=== PATIENT | female | born 1995 | race African-American/Black ===

== ENCOUNTER 2016-09-19 20:30 | Emergency (ER) | payer BC, MEDICAID ==
[~2016-09-19] VITALS: Ht 152.4 cm; Wt 60.0 kg
[~2016-09-19 20:30] MED LIST: DEPO400I IM; IBUP800T23 PO
[2016-09-19 20:34] VITALS: BP 116/88; PULSE 100; RESP 16; TEMP 97.1; O2SAT 100
[2016-09-19] MEDS ORDERED: SODIUM CHLOR 0.9% 1000 ML INJ 1,000 ML IV SCH (20:39)
[2016-09-19] MEDS ORDERED: DEPO150I IM (20:44)
[2016-09-19] MEDS ORDERED: IBUP800T23 PO (20:44)
[2016-09-19] MEDS ORDERED: SODIUM CHLORIDE 0.9% FLUSH 5 ML FLUSH IVF PRN (20:45)
[2016-09-19] MEDS ORDERED: ONDANSETRON HCL 4 MG/2 ML VIAL IVP ONE (20:45)
--- NOTE | 2016-09-19 20:48 | PD ---
HPI Chief Complaint: GI Complaint Time Seen by Provider: 20:38 Travel History International Travel<30 days: No Contact w/Intl Traveler<30days: No Traveled to known affect area: No History of Present Illness HPI This patient was examined in the presence of a female nurse. 21-year-old female presents for evaluation of nausea, vomiting. Symptom onset this morning. She reports approximately 8 episodes of nonbilious non-bloody emesis today. She is currently nauseous. She is denying any abdominal pain, dysuria, vaginal bleeding or discharge, flank pain, fevers or chills. She reports that yesterday evening she drank several alcoholic beverages at a [employer]. She denies any illicit drug use. She does not believe that she is because she received a Depo-Provera injection. She has no other complaints. [facility] Social History Alcohol Use: Yes Tobacco Use: Yes Allergies-Medications (Allergen,Severity, Reaction): Coded Allergies: No Known Allergies (Unverified , 09/19/16) Reported Meds & Prescriptions Reported Meds & Active Scripts Active Zofran (Ondansetron HCl) 4 Mg Tab 4 Mg PO Q6HR PRN Reported Depo-Provera Inj (Medroxyprogesterone Inj) 150 Mg/Ml Inj 150 Mg IM ONCE Ibuprofen 800 Mg Tab 800 Mg PO TID Review of Systems Except as stated in HPI: all other systems reviewed are Neg Physical Exam Narrative GENERAL: Well-developed well-nourished female in no acute distress resting comfortably in hospital bed SKIN: Warm and dry. HEAD: Atraumatic. Normocephalic. EYES: Pupils equal and round. No scleral icterus. No injection or drainage. ENT: No nasal bleeding or discharge. Mucous membranes pink and moist. NECK: Trachea midline. No JVD. CARDIOVASCULAR: Regular rate and rhythm. No murmur appreciated. RESPIRATORY: No accessory muscle use. Clear to auscultation. Breath sounds equal bilaterally. GASTROINTESTINAL: Abdomen soft, non-tender, nondistended. Hepatic and splenic margins not palpable. No guarding. No CVA tenderness. MUSCULOSKELETAL: No obvious deformities. No edema. NEUROLOGICAL: Awake and alert. No obvious cranial nerve deficits. Motor grossly within normal limits. Normal speech. Data Data Last Documented VS Vital Signs Date Time Temp Pulse Resp B/P Pulse Ox O2 Delivery O2 Flow Rate FiO2 09/19/16 21:21 18 09/19/16 20:34 97.1 100 116/88 100 Room Air Orders Complete Blood Count With Diff (09/19/16 20:39) Comprehensive Metabolic Panel (09/19/16 20:39) Lipase (09/19/16 20:39) Urinalysis - C+S If Indicated (09/19/16 20:39) Ed Urine Pregnancytest Poc (09/19/16 20:39) Iv Access Insert/Monitor (09/19/16 20:39) Ecg Monitoring (09/19/16 20:39) Oximetry (09/19/16 20:39) Ondansetron Inj (Zofran Inj) (09/19/16 20:45) Sodium Chlor 0.9% 1000 Ml Inj (Ns 1000 M (09/19/16 20:39) Sodium Chloride 0.9% Flush (Ns Flush) (09/19/16 20:45) Labs Laboratory Tests Test 09/19/16 20:50 White Blood Count 6.4 TH/MM3 Red Blood Count 4.95 MIL/MM3 Hemoglobin 14.3 GM/DL Hematocrit 42.8 % Mean Corpuscular Volume 86.5 FL Mean Corpuscular Hemoglobin 28.9 PG Mean Corpuscular Hemoglobin 33.4 % Concent Red Cell Distribution Width 13.7 % Platelet Count 191 TH/MM3 Mean Platelet Volume 8.7 FL Neutrophils (%) (Auto) 66.4 % Lymphocytes (%) (Auto) 23.3 % Monocytes (%) (Auto) 9.9 % Eosinophils (%) (Auto) 0.2 % Basophils (%) (Auto) 0.2 % Neutrophils # (Auto) 4.2 TH/MM3 Lymphocytes # (Auto) 1.5 TH/MM3 Monocytes # (Auto) 0.6 TH/MM3 Eosinophils # (Auto) 0.0 TH/MM3 Basophils # (Auto) 0.0 TH/MM3 CBC Comment DIFF FINAL Differential Comment Urine Color YELLOW Urine Turbidity HAZY Urine pH 8.0 Urine Specific [place] 1.027 Urine Protein 100 mg/dL Urine Glucose (UA) NEG mg/dL Urine Ketones NEG mg/dL Urine Occult Blood NEG Urine Nitrite NEG Urine Bilirubin NEG Urine Urobilinogen LESS THAN 2.0 MG/DL Urine Leukocyte Esterase NEG Urine RBC 1 /hpf Urine WBC 1 /hpf Urine Squamous Epithelial 16 /hpf Cells Urine Bacteria RARE /hpf Urine Mucus MOD /lpf Microscopic Urinalysis Comment CULT NOT INDICATED Sodium Level 139 MEQ/L Potassium Level 4.1 MEQ/L Chloride Level 104 MEQ/L Carbon Dioxide Level 26.8 MEQ/L Anion Gap 8 MEQ/L Blood Urea Nitrogen 11 MG/DL Creatinine 0.83 MG/DL Estimat Glomerular Filtration 104 ML/MIN Rate Random Glucose 92 MG/DL Calcium Level 9.1 MG/DL Total Bilirubin 0.6 MG/DL Aspartate Amino Transf 24 U/L (AST/SGOT) Alanine Aminotransferase 25 U/L (ALT/SGPT) Alkaline Phosphatase 100 U/L Total Protein 8.6 GM/DL Albumin 3.9 GM/DL Lipase 119 U/L [facility] Medical Decision Making Medical Screen Exam Complete: Yes Emergency Medical Condition: Yes Medical Record Reviewed: Yes Interpretation(s) Urine test negative CBC unremarkable CMP unremarkable Urinalysis rare bacteria, 100 protein Differential Diagnosis Dehydration, electrolyte abnormality, alcohol poisoning, early , pancreatitis, hyperglycemia, biliary colic Narrative Course 21-year-old female who drinks several alcoholic drinks yesterday evening presents with nausea and vomiting throughout the day today. Her abdomen is soft and nontender. I Suspect that her symptoms are secondary to drinking copious amounts of alcohol last night. The patient will be provided IV Zofran and fluids. Basic lab work will be obtained. Urinalysis, urine test and ordered. The patient's lab work is reassuring. Upon reexamination she feels significantly improved. The plan is to discharge the patient with a short course of Zofran. She is stable for discharge. Diagnosis Primary Impression: Nausea and vomiting Qualified Code: R11.2 - Non-intractable vomiting with nausea, unspecified vomiting type Additional Instructions: Zofran for nausea. Stay well-hydrated and well-nourished. Slowly advance diet. Follow-up with primary care physician as needed and return for new or worsening symptoms. Med/Other Pt SpecificInfo: Prescription(s) given Scripts Ondansetron (Zofran)4 Mg Tab4 Mg PO Q6HR PRN (NAUSEA OR VOMITING) #20 TAB Ref 0 Prov:Steffany Castañeda MD 09/19/16 Disposition: 01 DISCHARGE HOME Condition: Stable Piotr Lange Sep 19, 2016 20:48
[2016-09-19 21:21] VITALS: RESP 18
[2016-09-19 21:24] LABS: AUTOMATED NEUTROPHIL # 4.2 TH/MM3 (1.8-7.7); BASOPHIL % 0.2 % (0.0-2.0); EOSINOPHIL % 0.2 % (0.0-4.0); HEMATOCRIT 42.8 % (35.0-46.0); HEMO FLAGS DIFF FINAL; LYMPH % 23.3 % (9.0-44.0); LYMPHOCYTE # 1.5 TH/MM3 (1.0-4.8); MEAN CELL VOLUME 86.5 FL (80.0-100.0); MEAN CORPUSCULAR HEMOGLOBIN 28.9 PG (27.0-34.0); MEAN CORPUSCULAR HGB CONC 33.4 % (32.0-36.0); MONO % 9.9 % (0.0-8.0); NEUT % 66.4 % (16.0-70.0); PLATELET COUNT 191 TH/MM3 (150-450); RED BLOOD COUNT 4.95 MIL/MM3 (4.00-5.30); RED CELL DISTRIBUTION WIDTH 13.7 % (11.6-17.2); WHITE BLOOD COUNT 6.4 TH/MM3 (4.0-11.0)
[2016-09-19 21:39] LABS: ANION GAP 8 MEQ/L (5-15); AST (GOT) 24 U/L (15-37); BACTERIA, URINE RARE /hpf; BICARBONATE 26.8 MEQ/L (21.0-32.0); BLOOD UREA NITROGEN 11 MG/DL (7-18); BLOOD, URINE NEG (NEG); CHLORIDE 104 MEQ/L (98-107); COMMENT (UR) CULT NOT INDICATED; CULTURE IF INDICATED CULT NOT INDICATED; GLOMERULAR FILTRATION RATE 104 ML/MIN (>89); GLUCOSE,URINE NEG (NEG); KETONE, URINE NEG (NEG); MUCUS URINE MOD /lpf (OCC); NITRITE,URINE NEG (NEG); POTASSIUM 4.1 MEQ/L (3.5-5.1); SODIUM (NA) 139 MEQ/L (136-145); SQUAMOUS EPITHELIAL CELL URINE 16 /hpf (0-5); URINE COLOR YELLOW (YELLW/STRAW)
[2016-09-19 21:41] LABS: ALKALINE PHOSPHATASE 100 U/L (45-117); ALT (GPT) 25 U/L (10-53); TOTAL BILIRUBIN ADULT 0.6 MG/DL (0.2-1.0)
[2016-09-19] MEDS ORDERED: ZOFR4TAB PO (21:57)
== END 2016-09-19 22:58 | disposition home or self-care (01) ==
LOC: NEPE 20:30
DX: R11.2 Nausea with vomiting, unspecified (principal)
CPT/HCPCS: 80053; 81001; 83690; 84703; 85025; 96361; 96374; 99284; J2405; J7030

== ENCOUNTER 2017-06-24 15:31 | Emergency (ER) | payer SELFPAY ==
[~2017-06-24] VITALS: Ht 154.9 cm; Wt 65.0 kg
[~2017-06-24 15:31] MED LIST changes: +DEPO150I IM; -DEPO400I IM; +ZOFR4TAB PO
[2017-06-24 15:33] VITALS: BP 120/74; PULSE 91; RESP 16; TEMP 98.5; O2SAT 95
[2017-06-24] MEDS ORDERED: SODIUM CHLOR 0.9% 1000 ML INJ 1,000 ML IV SCH (17:00)
[2017-06-24] MEDS ORDERED: ONDANSETRON HCL 4 MG/2 ML VIAL IVP ONE (17:00)
[2017-06-24] MEDS ORDERED: SODIUM CHLORIDE 0.9% FLUSH 10 ML FLUSH IV FLUSH PRN (17:00)
--- NOTE | 2017-06-24 17:00 | PD ---
HPI Chief Complaint: GI Complaint Time Seen by Provider: 16:56 Travel History International Travel<30 days: No Contact w/Intl Traveler<30days: No Traveled to known affect area: No History of Present Illness HPI 21-year-old female presents to emergency Department with complaint of nausea and vomiting since last night about 10 PM. States that she vomited a total of 6 times prior to the ER in 3 times while waiting in the waiting room. Denies fever, abdominal pain, dysuria, vaginal discharge, diarrhea. Has an IUD and had some spotting a few days ago, which she considers her LMP. No one else with similar symptoms. Has not taken any medications or tried any treatments to alleviate her symptoms. No known aggravating or relieving factors. Says she did try to drink some fluids and threw it up also. Symptoms are mild in severity. Has no other medical complaints. No known allergies. No other modifying factors or associated signs and symptoms. PFSH Past Medical History ?: Not LMP: 06/2017 : 0 Social History Alcohol Use: Yes Tobacco Use: Yes Substance Use: Yes () Allergies-Medications (Allergen,Severity, Reaction): Coded Allergies: No Known Allergies (Unverified , 09/19/16) Reported Meds & Prescriptions Reported Meds & Active Scripts Active Zofran Odt (Ondansetron Odt) 4 Mg Tab 4 Mg SL Q6HR PRN Reported Depo-Provera Inj (Medroxyprogesterone Inj) 150 Mg/Ml Inj 150 Mg IM ONCE Review of Systems Except as stated in HPI: all other systems reviewed are Neg Physical Exam Narrative GENERAL: Well-nourished, well-developed black female patient, in no acute distress; afebrile, nontoxic-appearing SKIN: Warm and dry. HEAD: Atraumatic. Normocephalic. EYES: Pupils equal and round. No scleral icterus. No injection or drainage. ENT: Mucosa pink and moist. Airway patent. NECK: Trachea midline. CARDIOVASCULAR: Regular rate and rhythm. No murmur appreciated. RESPIRATORY: No accessory muscle use. Clear to auscultation. Breath sounds equal bilaterally. GASTROINTESTINAL: Abdomen soft, non-tender, nondistended. Hepatic and splenic margins not palpable. Bowel sounds are active 4 quadrants. Bladder nontender and nondistended. MUSCULOSKELETAL: No obvious deformities. No clubbing. No cyanosis. No edema. NEUROLOGICAL: Awake and alert. Oriented 3. No obvious cranial nerve deficits. Motor grossly within normal limits. Normal speech. PSYCHIATRIC: Appropriate mood and affect; insight and judgment normal. Data Data Last Documented VS Vital Signs Date Time Temp Pulse Resp B/P (MAP) Pulse Ox O2 Delivery O2 Flow Rate FiO2 06/24/17 20:07 06/24/17 15:33 98.5 91 16 95 Orders Orders Iv Access Insert/Monitor (06/24/17 17:00) Ondansetron Inj (Zofran Inj) (06/24/17 17:00) Sodium Chlor 0.9% 1000 Ml Inj (Ns 1000 M (06/24/17 17:00) Sodium Chloride 0.9% Flush (Ns Flush) (06/24/17 17:00) Ed Urine Pregnancytest Poc (06/24/17 17:00) Complete Blood Count With Diff (06/24/17 17:00) Urinalysis - C+S If Indicated (06/24/17:17) Comprehensive Metabolic Panel (06/24/17 17:20) Lipase (06/24/17 17:20) Ondansetron Inj (Zofran Inj) (06/24/17 19:00) Labs Laboratory Tests Test 06/24/17 17:35 White Blood Count 7.7 TH/MM3 Red Blood Count 4.82 MIL/MM3 Hemoglobin 14.2 GM/DL Hematocrit 42.8 % Mean Corpuscular Volume 88.8 FL Mean Corpuscular Hemoglobin 29.5 PG Mean Corpuscular Hemoglobin Concent 33.3 % Red Cell Distribution Width 13.6 % Platelet Count 229 TH/MM3 Mean Platelet Volume 8.2 FL Neutrophils (%) (Auto) 72.5 % Lymphocytes (%) (Auto) 18.7 % Monocytes (%) (Auto) 8.4 % Eosinophils (%) (Auto) 0.1 % Basophils (%) (Auto) 0.3 % Neutrophils # (Auto) 5.6 TH/MM3 Lymphocytes # (Auto) 1.4 TH/MM3 Monocytes # (Auto) 0.6 TH/MM3 Eosinophils # (Auto) 0.0 TH/MM3 Basophils # (Auto) 0.0 TH/MM3 CBC Comment DIFF FINAL Differential Comment Urine Color YELLOW Urine Turbidity HAZY Urine pH 7.0 Urine Specific [place] 1.029 Urine Protein 100 mg/dL Urine Glucose (UA) NEG mg/dL Urine Ketones NEG mg/dL Urine Occult Blood NEG Urine Nitrite NEG Urine Bilirubin NEG Urine Urobilinogen LESS THAN 2.0 MG/DL Urine Leukocyte Esterase NEG Urine WBC 4 /hpf Urine Squamous Epithelial Cells 14 /hpf Urine Mucus MOD /lpf Microscopic Urinalysis Comment CULT NOT INDICATED Blood Urea Nitrogen 10 MG/DL Creatinine 0.76 MG/DL Random Glucose 85 MG/DL Total Protein 9.1 GM/DL Albumin 4.0 GM/DL Calcium Level 9.6 MG/DL Alkaline Phosphatase 121 U/L Aspartate Amino Transf (AST/SGOT) 28 U/L Alanine Aminotransferase (ALT/SGPT) 23 U/L Total Bilirubin 0.5 MG/DL Sodium Level 139 MEQ/L Potassium Level 4.6 MEQ/L Chloride Level 106 MEQ/L Carbon Dioxide Level 23.2 MEQ/L Anion Gap 10 MEQ/L Estimat Glomerular Filtration Rate 115 ML/MIN Lipase 97 U/L MDM Medical Decision Making Medical Screen Exam Complete: Yes Emergency Medical Condition: Yes Medical Record Reviewed: Yes Differential Diagnosis Nausea and vomiting, gastroenteritis, dehydration, , pancreatitis Narrative Course 21-year-old female with nausea and vomiting since 10 PM last night. IV site obtained. CBC, CMP, lipase, urinalysis, UPT, normal saline bolus, Zofran ordered. 1817: CBC unremarkable. Urinalysis without signs of infection. 1850: Patient has been drinking fluids tolerated well. Patient says she feels a little nauseated at this time, but not bad. Second dose of Zofran ordered. CMP unremarkable. Patient discharged home with Zofran. Instructed patient to follow up with primary care provider. Patient verbalizes understanding and agreement with treatment plan. Patient is medically cleared and stable for discharge. Discussed reasons to return to the emergency department. Patient agrees with treatment plan. The patients vital signs are stable and the patient is stable for outpatient follow-up and treatment. Patient discharged home, stable and in no acute distress. Diagnosis Primary Impression: Nausea and vomiting Qualified Codes: R11.2 - Nausea with vomiting, unspecified Referrals: Primary Care Physician Patient Instructions: Acute Nausea and Vomiting (ED), General Instructions Additional Instructions: Zofran instructed not stated for nausea/vomiting [place] diet to include rice, apples, toast, bananas, etc.; increase diet to regular diet as tolerated Increase fluid intake to avoid dehydration; Gatorade, ketan anna, Powerade, Pedialyte Follow-up with primary care provider Return to the emergency department immediately if worsening of symptoms Med/Other Pt SpecificInfo: Prescription(s) given Scripts Ondansetron Odt (Zofran Odt) 4 Mg Tab 4 MG SL Q6HR Y for Nausea/Vomiting, #6 TAB 0 Refills Prov: Maddy Benjamin 06/24/17 Disposition: 01 DISCHARGE HOME Condition: Stable Maddy Benjamin Jun 24, 2017 17:00
[2017-06-24 17:45] LABS: AUTOMATED NEUTROPHIL # 5.6 TH/MM3 (1.8-7.7); BASOPHIL % 0.3 % (0.0-2.0); EOSINOPHIL % 0.1 % (0.0-4.0); HEMATOCRIT 42.8 % (35.0-46.0); HEMO FLAGS DIFF FINAL; LYMPH % 18.7 % (9.0-44.0); LYMPHOCYTE # 1.4 TH/MM3 (1.0-4.8); MEAN CELL VOLUME 88.8 FL (80.0-100.0); MEAN CORPUSCULAR HEMOGLOBIN 29.5 PG (27.0-34.0); MEAN CORPUSCULAR HGB CONC 33.3 % (32.0-36.0); MONO % 8.4 % (0.0-8.0); NEUT % 72.5 % (16.0-70.0); PLATELET COUNT 229 TH/MM3 (150-450); RED BLOOD COUNT 4.82 MIL/MM3 (4.00-5.30); RED CELL DISTRIBUTION WIDTH 13.6 % (11.6-17.2); WHITE BLOOD COUNT 7.7 TH/MM3 (4.0-11.0)
[2017-06-24 18:00] LABS: BLOOD, URINE NEG (NEG); COMMENT (UR) CULT NOT INDICATED; CULTURE IF INDICATED CULT NOT INDICATED; GLUCOSE,URINE NEG (NEG); KETONE, URINE NEG (NEG); MUCUS URINE MOD /lpf (OCC); NITRITE,URINE NEG (NEG); SQUAMOUS EPITHELIAL CELL URINE 14 /hpf (0-5); URINE COLOR YELLOW (YELLW/STRAW)
[2017-06-24] MEDS ORDERED: ZOFR4TAB3 SL (18:58)
[2017-06-24] MEDS ORDERED: ONDANSETRON HCL 4 MG/2 ML VIAL IV PUSH ONE (19:00)
[2017-06-24 19:07] LABS: ALT (GPT) 23 U/L (10-53)
[2017-06-24 19:10] LABS: ALKALINE PHOSPHATASE 121 U/L (45-117); TOTAL BILIRUBIN ADULT 0.5 MG/DL (0.2-1.0)
[2017-06-24 19:35] LABS: ANION GAP 10 MEQ/L (5-15); AST (GOT) 28 U/L (15-37); BICARBONATE 23.2 MEQ/L (21.0-32.0); BLOOD UREA NITROGEN 10 MG/DL (7-18); CHLORIDE 106 MEQ/L (98-107); GLOMERULAR FILTRATION RATE 115 ML/MIN (>89); POTASSIUM 4.6 MEQ/L (3.5-5.1); SODIUM (NA) 139 MEQ/L (136-145)
--- NOTE | 2017-06-24 19:45 | PD ---
Data Data Last Documented VS Vital Signs Date Time Temp Pulse Resp B/P (MAP) Pulse Ox O2 Delivery O2 Flow Rate FiO2 06/24/17 15:33 98.5 91 16 120/74 (89) 95 Orders Orders Iv Access Insert/Monitor (06/24/17 17:00) Ondansetron Inj (Zofran Inj) (06/24/17 17:00) Sodium Chlor 0.9% 1000 Ml Inj (Ns 1000 M (06/24/17 17:00) Sodium Chloride 0.9% Flush (Ns Flush) (06/24/17 17:00) Ed Urine Pregnancytest Poc (06/24/17 17:00) Complete Blood Count With Diff (06/24/17 17:00) Urinalysis - C+S If Indicated (06/24/17 17:17) Comprehensive Metabolic Panel (06/24/17 17:20) Lipase (06/24/17 17:20) Ondansetron Inj (Zofran Inj) (06/24/17 19:00) Labs Laboratory Tests Test 06/24/17 17:35 White Blood Count 7.7 TH/MM3 Red Blood Count 4.82 MIL/MM3 Hemoglobin 14.2 GM/DL Hematocrit 42.8 % Mean Corpuscular Volume 88.8 FL Mean Corpuscular Hemoglobin 29.5 PG Mean Corpuscular Hemoglobin Concent 33.3 % Red Cell Distribution Width 13.6 % Platelet Count 229 TH/MM3 Mean Platelet Volume 8.2 FL Neutrophils (%) (Auto) 72.5 % Lymphocytes (%) (Auto) 18.7 % Monocytes (%) (Auto) 8.4 % Eosinophils (%) (Auto) 0.1 % Basophils (%) (Auto) 0.3 % Neutrophils # (Auto) 5.6 TH/MM3 Lymphocytes # (Auto) 1.4 TH/MM3 Monocytes # (Auto) 0.6 TH/MM3 Eosinophils # (Auto) 0.0 TH/MM3 Basophils # (Auto) 0.0 TH/MM3 CBC Comment DIFF FINAL Differential Comment Urine Color YELLOW Urine Turbidity HAZY Urine pH 7.0 Urine Specific [place] 1.029 Urine Protein 100 mg/dL Urine Glucose (UA) NEG mg/dL Urine Ketones NEG mg/dL Urine Occult Blood NEG Urine Nitrite NEG Urine Bilirubin NEG Urine Urobilinogen LESS THAN 2.0 MG/DL Urine Leukocyte Esterase NEG Urine WBC 4 /hpf Urine Squamous Epithelial Cells 14 /hpf Urine Mucus MOD /lpf Microscopic Urinalysis Comment CULT NOT INDICATED Blood Urea Nitrogen 10 MG/DL Creatinine 0.76 MG/DL Random Glucose 85 MG/DL Total Protein 9.1 GM/DL Albumin 4.0 GM/DL Calcium Level 9.6 MG/DL Alkaline Phosphatase 121 U/L Aspartate Amino Transf (AST/SGOT) 28 U/L Alanine Aminotransferase (ALT/SGPT) 23 U/L Total Bilirubin 0.5 MG/DL Sodium Level 139 MEQ/L Potassium Level 4.6 MEQ/L Chloride Level 106 MEQ/L Carbon Dioxide Level 23.2 MEQ/L Anion Gap 10 MEQ/L Estimat Glomerular Filtration Rate 115 ML/MIN Lipase 97 U/L MDM Medical Record Reviewed: Yes Supervised Visit with MARGUERITE: Yes Narrative Course CBC & BMP Diagram 06/24/17 17:35 Total Protein 9.1 H, Albumin 4.0, Calcium Level 9.6, Alkaline Phosphatase 121 H , Aspartate Amino Transf (AST/SGOT) 28, Alanine Aminotransferase (ALT/SGPT) 23, Total Bilirubin 0.5 Lipase normal UA no UTI U preg: negative I, Dr. Booth, have reviewed the advance practice practitioner's documentation and am in agreement, met with the patient face to face, made the diagnosis, and the medical decision making was done by me. *My assessment and Findings: Pt with n/v Work up unremarkable Pt tolerating oral hydration DC with zofran Work/school note provided at patient's request Diagnosis Primary Impression: Nausea and vomiting Qualified Codes: R11.2 - Nausea with vomiting, unspecified Referrals: Primary Care Physician Patient Instructions: General Instructions, Acute Nausea and Vomiting (ED) Additional Instruction: Zofran instructed not stated for nausea/vomiting [place] diet to include rice, apples, toast, bananas, etc.; increase diet to regular diet as tolerated Increase fluid intake to avoid dehydration; Gatorade, ketan anna, Powerade, Pedialyte Follow-up with primary care provider Return to the emergency department immediately if worsening of symptoms Med/Other Pt SpecificInfo: Prescription(s) given Scripts Ondansetron Odt (Zofran Odt) 4 Mg Tab 4 MG SL Q6HR Y for Nausea/Vomiting, #6 TAB 0 Refills Prov: Maddy Benjamin 06/24/17 Disposition: 01 DISCHARGE HOME Condition: Stable Marcelino Booth MD Jun 24, 2017 19:45
== END 2017-06-24 20:18 | disposition home or self-care (01) ==
LOC: NEPD 15:31
DX: R11.2 Nausea with vomiting, unspecified (principal); Z72.0 Tobacco use
CPT/HCPCS: 80053; 81001; 83690; 84703; 85025; 96361; 96374; 96375; 99284; J2405; J7030

== ENCOUNTER 2017-10-19 10:33 | Emergency (ER) | payer SELFPAY ==
[~2017-10-19] VITALS: Ht 165.1 cm; Wt 62.0 kg
[2017-10-19 10:33] VITALS: BP 121/75; PULSE 96; RESP 18; TEMP 98.6; O2SAT 97
[~2017-10-19 10:33] MED LIST changes: -IBUP800T23 PO; -ZOFR4TAB PO; +ZOFR4TAB3 SL
[2017-10-19] MEDS ORDERED: SODIUM CHLOR 0.9% 1000 ML INJ 1,000 ML IV SCH (11:27)
[2017-10-19] MEDS ORDERED: ONDANSETRON HCL 4 MG/2 ML VIAL IVP ONE (11:30)
[2017-10-19] MEDS ORDERED: SODIUM CHLORIDE 0.9% FLUSH 10 ML FLUSH IV FLUSH PRN (11:30)
[2017-10-19 11:47] LABS: BILIRUBIN, URINE NEG (NEG); BLOOD, URINE TRACE (NEG); GLUCOSE,URINE NEG (NEG); KETONE, URINE NEG (NEG); MUCUS URINE FEW /lpf (OCC); NITRITE,URINE NEG (NEG); PH, URINE 8.5 (5.0-8.5); SQUAMOUS EPITHELIAL CELL URINE 6 /hpf (0-5); URINE COLOR YELLOW (YELLW/STRAW); URINE LEUKOCYTE ESTERASE NEG (NEG)
--- NOTE | 2017-10-19 12:11 | PD ---
HPI Chief Complaint: GI Complaint Time Seen by Provider: 11:27 Travel History International Travel<30 days: No Contact w/Intl Traveler<30days: No Traveled to known affect area: No History of Present Illness HPI 22-year-old female presents to emergency department for evaluation of nausea vomiting and diarrhea which started this morning., Nonbloody and nonbilious vomiting, nonbloody and non-melanous stool. No chest pain no shortness of breath no abdominal pain. No dizziness no weakness no possibility for . She states symptoms are moderate, gradually worsening, associated signs symptoms as above, for the past few hours. She and her friends while last night and had [place] food and margaritas. PFSH Past Medical History Diminished Hearing: No ?: Unknown : 0 Social History Alcohol Use: No Tobacco Use: No Substance Use: No Allergies-Medications (Allergen,Severity, Reaction): Coded Allergies: No Known Allergies (Unverified Adverse Reaction, Unknown, 10/19/17) Reported Meds & Prescriptions Reported Meds & Active Scripts Active Zofran (Ondansetron HCl) 4 Mg Tab 4 Mg PO Q6HR PRN Reported Depo-Provera Inj (Medroxyprogesterone Inj) 150 Mg/Ml Inj 150 Mg IM ONCE Review of Systems Except as stated in HPI: all other systems reviewed are Neg Physical Exam Narrative GENERAL: Well-developed well-nourished actively vomiting. SKIN: Focused skin assessment warm/dry. HEAD: Atraumatic. Normocephalic. EYES: Pupils equal and round. No scleral icterus. No injection or drainage. ENT: No nasal bleeding or discharge. Mucous membranes pink and moist. NECK: Trachea midline. No JVD. CARDIOVASCULAR: Regular rate and rhythm. No murmur appreciated. RESPIRATORY: No accessory muscle use. Clear to auscultation. Breath sounds equal bilaterally. GASTROINTESTINAL: Abdomen soft, non-tender, nondistended. Hepatic and splenic margins not palpable. MUSCULOSKELETAL: No obvious deformities. No clubbing. No cyanosis. No edema. NEUROLOGICAL: Awake and alert. No obvious cranial nerve deficits. Motor grossly within normal limits. Normal speech. PSYCHIATRIC: Appropriate mood and affect; insight and judgment normal. Data Data Last Documented VS Vital Signs Date Time Temp Pulse Resp B/P (MAP) Pulse Ox O2 Delivery O2 Flow Rate FiO2 10/19/17 13:40 10/19/17 13:39 100 Room Air 10/19/17 10:33 98.6 96 18 Orders Orders Urinalysis - C+S If Indicated (10/19/17 11:18) Ed Urine Pregnancytest Poc (10/19/17 11:18) Complete Blood Count With Diff (10/19/17 11:27) Comprehensive Metabolic Panel (10/19/17 11:27) Lipase (10/19/17 11:27) Iv Access Insert/Monitor (10/19/17 11:27) Ecg Monitoring (10/19/17 11:27) Oximetry (10/19/17 11:27) Ondansetron Inj (Zofran Inj) (10/19/17 11:30) Sodium Chlor 0.9% 1000 Ml Inj (Ns 1000 M (10/19/17 11:27) Sodium Chloride 0.9% Flush (Ns Flush) (10/19/17 11:30) Ed Discharge Order (10/19/17 13:30) Labs Laboratory Tests Test 10/19/17 11:20 10/19/17 11:40 Urine Color YELLOW Urine Turbidity HAZY Urine pH 8.5 Urine Specific [place] 1.023 Urine Protein 100 mg/dL Urine Glucose (UA) NEG mg/dL Urine Ketones NEG mg/dL Urine Occult Blood TRACE Urine Nitrite NEG Urine Bilirubin NEG Urine Urobilinogen LESS THAN 2.0 MG/DL Urine Leukocyte Esterase NEG Urine RBC 1 /hpf Urine WBC LESS THAN 1 /hpf Urine Squamous Epithelial Cells 6 /hpf Urine Mucus FEW /lpf Microscopic Urinalysis Comment CULT NOT INDICATED White Blood Count 5.8 TH/MM3 Red Blood Count 4.77 MIL/MM3 Hemoglobin 13.9 GM/DL Hematocrit 41.7 % Mean Corpuscular Volume 87.3 FL Mean Corpuscular Hemoglobin 29.2 PG Mean Corpuscular Hemoglobin Concent 33.4 % Red Cell Distribution Width 14.1 % Platelet Count 222 TH/MM3 Mean Platelet Volume 8.5 FL Neutrophils (%) (Auto) 72.8 % Lymphocytes (%) (Auto) 16.9 % Monocytes (%) (Auto) 9.7 % Eosinophils (%) (Auto) 0.3 % Basophils (%) (Auto) 0.3 % Neutrophils # (Auto) 4.2 TH/MM3 Lymphocytes # (Auto) 1.0 TH/MM3 Monocytes # (Auto) 0.6 TH/MM3 Eosinophils # (Auto) 0.0 TH/MM3 Basophils # (Auto) 0.0 TH/MM3 CBC Comment DIFF FINAL Differential Comment Blood Urea Nitrogen 8 MG/DL Creatinine 0.67 MG/DL Random Glucose 100 MG/DL Total Protein 8.2 GM/DL Albumin 3.7 GM/DL Calcium Level 9.0 MG/DL Alkaline Phosphatase 116 U/L Aspartate Amino Transf (AST/SGOT) 24 U/L Alanine Aminotransferase (ALT/SGPT) 22 U/L Total Bilirubin 0.4 MG/DL Sodium Level 140 MEQ/L Potassium Level 4.2 MEQ/L Chloride Level 106 MEQ/L Carbon Dioxide Level 29.4 MEQ/L Anion Gap 5 MEQ/L Estimat Glomerular Filtration Rate 132 ML/MIN Lipase 108 U/L MDM Medical Decision Making Medical Screen Exam Complete: Yes Emergency Medical Condition: Yes Differential Diagnosis Gastritis, gastroenteritis, electrolyte abnormality, nausea vomiting, pancreatitis, cholecystitis. Narrative Course Patient room to the emergency department, given 8 mg Zofran IV, normal saline bolus. Feeling much better, likely foodborne gastroenteritis versus alcoholic gastritis. Labs are reassuring. She is stable for discharge discussed symptomatic management return to be criteria Diagnosis Primary Impression: Nausea and vomiting Med/Other Pt SpecificInfo: Prescription(s) given Scripts Ondansetron (Zofran) 4 Mg Tab 4 MG PO Q6HR Y for NAUSEA OR VOMITING, #20 TAB 0 Refills Prov: Archie Garrido MD 10/19/17 Disposition: 01 DISCHARGE HOME Condition: Stable Archie Garrido MD Oct 19, 2017 12:11
[2017-10-19 12:15] LABS: AUTOMATED NEUTROPHIL # 4.2 TH/MM3 (1.8-7.7); BASOPHIL % 0.3 % (0.0-2.0); EOSINOPHIL % 0.3 % (0.0-4.0); HEMATOCRIT 41.7 % (35.0-46.0); HEMOGLOBIN 13.9 GM/DL (11.6-15.3); LYMPH % 16.9 % (9.0-44.0); MEAN CELL VOLUME 87.3 FL (80.0-100.0); MEAN CORPUSCULAR HEMOGLOBIN 29.2 PG (27.0-34.0); MEAN CORPUSCULAR HGB CONC 33.4 % (32.0-36.0); MEAN PLATELET VOLUME 8.5 FL (7.0-11.0); MONO % 9.7 % (0.0-8.0); MONOCYTE # 0.6 TH/MM3 (0-0.9); NEUT % 72.8 % (16.0-70.0); PLATELET COUNT 222 TH/MM3 (150-450); RED BLOOD COUNT 4.77 MIL/MM3 (4.00-5.30); RED CELL DISTRIBUTION WIDTH 14.1 % (11.6-17.2); WHITE BLOOD COUNT 5.8 TH/MM3 (4.0-11.0)
[2017-10-19 12:29] LABS: ALBUMIN 3.7 GM/DL (3.4-5.0); AST (GOT) 24 U/L (15-37); BICARBONATE 29.4 MEQ/L (21.0-32.0); BLOOD UREA NITROGEN 8 MG/DL (7-18); CHLORIDE 106 MEQ/L (98-107); CREATININE 0.67 MG/DL (0.50-1.00); GLOMERULAR FILTRATION RATE 132 ML/MIN (>89); GLUCOSE,RANDOM 100 MG/DL (74-106); LIPASE 108 U/L (73-393); SODIUM (NA) 140 MEQ/L (136-145)
[2017-10-19 12:31] LABS: ALT (GPT) 22 U/L (10-53)
[2017-10-19 12:33] LABS: ALKALINE PHOSPHATASE 116 U/L (45-117); TOTAL BILIRUBIN ADULT 0.4 MG/DL (0.2-1.0); TOTAL PROTEIN 8.2 GM/DL (6.4-8.2)
[2017-10-19] MEDS ORDERED: ZOFR4TAB PO (13:30)
[2017-10-19 13:39] VITALS: O2SAT 100
== END 2017-10-19 13:42 | disposition home or self-care (01) ==
LOC: NEPD 10:33
DX: R11.2 Nausea with vomiting, unspecified (principal); R19.7 Diarrhea, unspecified
CPT/HCPCS: 80053; 81001; 83690; 84703; 85025; 96361; 96374; 99284; J2405; J7030